=== PATIENT | male | born 1990 | race Caucasian/White ===

== ENCOUNTER 2019-01-27 12:16 | Emergency (ER) | payer OTHER ==
[~2019-01-27] VITALS: Ht 180.3 cm; Wt 112.6 kg
[2019-01-27 13:09] VITALS: Ht 180.3 cm; Wt 112.6 kg
[2019-01-27] MEDS ORDERED: DIPHTH/TET/ACEL PERTUSS (ADULT) 0.5 ML VIAL IM* ONE (14:30)
[2019-01-27] MEDS ORDERED: LIDOCAINE 1% (MDV) 20 ML INJ SC ONE (14:30)
[2019-01-27] MEDS ORDERED: HYDROCODONE/APAP (10/325) TAB PO ONE (14:30)
[2019-01-27] MEDS ORDERED: SOD CHLORIDE 0.9% 100 ML ONE (15:33)
[2019-01-27] MEDS ORDERED: IOHEXOL 300MG/ML 150 ML BTL ONE (15:33)
[2019-01-27] MEDS ORDERED: CEPH-443 PO (16:17)
[2019-01-27] MEDS ORDERED: TRAM50TA2 PO (16:17)
--- NOTE | 2019-01-27 16:27 | ERD ---
ER Documentation Chief Complaint Chief Complaint fell off ladder onto metal spikes earlier today HPI Patient is a 28-year-old male presenting to the ED after falling off of a one- story building. Patient fell and impaled himself on a fence. Patient recalls the whole event and states he did not lose consciousness and did not hit his head. Patient was able to bring himself to the ER with his friend. Patient is alert oriented x4. Patient has 1 laceration on the upper left portion of his back which is approximately 3 cm and appears to be deep, 2 cm superficial laceration on his left lower back 2 cm laceration, 2 cm laceration left lower abdominal region that appears superficial, patient has sub-hemorrhage conjunctivitis in his right eye. Eyes any drug or alcohol use and says he lost his balance when he was sitting on a railing and fell backwards. He is to medication. Patient denies any past medical history. ROS All systems reviewed and are negative except as per history of present illness. Medications Home Meds Active Scripts Tramadol HCl (Tramadol HCl) 50 Mg Tablet, 50 MG PO BID, #20 TAB Prov:FAVIO LEON PA-C 01/27/19 Cephalexin* (Keflex*) 500 Mg Capsule, 500 MG PO QID for 5 Days, CAP Prov:FAVIO LEON PA-C 01/27/19 Allergies Allergies: Coded Allergies: No Known Allergy (Unverified , 05/08/15) PMhx/Soc Medical and Surgical Hx: pt denies Medical Hx, pt denies Surgical Hx Hx Alcohol Use: No Hx Substance Use: No Hx Tobacco Use: No Smoking Status: Never smoker FmHx Family History: No diabetes, No coronary disease, No other Physical Exam Vitals Vital Signs Date Temp Pulse Resp B/P (MAP) Pulse Ox O2 O2 Flow FiO2 Time Delivery Rate 01/27/19 98.2 77 18 138/82 100 Room Air 17:40 (100) 01/27/19 98.2 94 18 146/83 100 13:09 (104) Physical Exam Const: No acute distress Head: Atraumatic Eyes: Right eye has sub-conjunctival hemorrhage, no signs of globe rupture, no signs of foreign body, no signs of eyelid lacerations, ENT: Normal External Ears, Nose and Mouth. Neck: Full range of motion. No meningismus. Resp: Clear to auscultation bilaterally Cardio: Regular rate and rhythm, no murmurs Abd: 2 cm laceration left lower flank ,soft, non tender, non distended. Normal bowel sounds Skin: No petechiae or rashes Back: 3 cm laceration left upper back, 2 cm laceration left lower back, Ext: No cyanosis, or edema Neur: Awake and alert Psych: Normal Mood and Affect Result Diagram: 01/27/19 1429 01/27/19 1429 Results 24 hrs Laboratory Tests Test 01/27/19 14:29 White Blood Count 12.9 10^3/ul Red Blood Count 5.86 10^6/ul Hemoglobin 16.3 g/dl Hematocrit 48.3 % Mean Corpuscular Volume 82.4 fl Mean Corpuscular Hemoglobin 27.8 pg Mean Corpuscular Hemoglobin Concent 33.7 g/dl Red Cell Distribution Width 12.4 % Platelet Count 281 10^3/UL Mean Platelet Volume 10.3 fl Immature Granulocytes % 0.500 % Neutrophils % 82.5 % Lymphocytes % 12.1 % Monocytes % 4.3 % Eosinophils % 0.2 % Basophils % 0.4 % Nucleated Red Blood Cells % 0.0 /100WBC Immature Granulocytes # 0.070 10^3/ul Neutrophils # 10.7 10^3/ul Lymphocytes # 1.6 10^3/ul Monocytes # 0.6 10^3/ul Eosinophils # 0.0 10^3/ul Basophils # 0.1 10^3/ul Nucleated Red Blood Cells # 0.0 10^3/ul Sodium Level 142 mmol/L Potassium Level 4.6 mmol/L Chloride Level 107 mmol/L Carbon Dioxide Level 27 mmol/L Anion Gap 8 Blood Urea Nitrogen 12 mg/dl Creatinine 0.95 mg/dl Est Glomerular Filtrat Rate mL/min > 60 mL/min Glucose Level 109 mg/dl Calcium Level 9.6 mg/dl Total Bilirubin 0.9 mg/dl Direct Bilirubin 0.00 mg/dl Indirect Bilirubin 0.9 mg/dl Aspartate Amino Transf (AST/SGOT) 35 IU/L Alanine Aminotransferase (ALT/SGPT) 44 IU/L Alkaline Phosphatase 67 IU/L Total Protein 8.1 g/dl Albumin 4.5 g/dl Globulin 3.60 g/dl Albumin/Globulin Ratio 1.25 Current Medications Medications Dose Sig/Karina Start Time Status Last (Trade) Ordered Route PRN Stop Time Admin Dose Reason Admin 1 tab ONCE ONCE 01/27/19 DC 01/27/19 Acetaminophen PO 14:30 01/27/19 14:20 / 14:31 Hydrocodone Bitart ([place] (10325)) Diphtheria/ 0.5 ml ONCE ONCE 01/27/19 DC 01/27/19 Tetanus/Acell IM* 14:30 01/27/19 14:21 Pertussis 14:31 (Adacel) Lidocaine 20 ml ONCE ONCE 01/27/19 DC (Xylocaine SC 14:30 01/27/19 1% (Mdv) 20 14:31 ml) IV Flush 10 ml STK-MED 01/27/19 DC (NS 10 ml) ONCE .ROUTE 15:01/27/19 15:34 Sodium 100 ml @ ud STK-MED 01/27/19 DC Chloride ONCE .ROUTE 15:01/27/19 15:34 Iohexol 150 ml STK-MED 01/27/19 DC (Omnipaque ONCE .ROUTE 15:01/27/19 300mg/ ml) 15:34 Procedures/MDM Diagnostic imaging: Read by radiologist PROCEDURE: CT Chest With Intravenous Contrast CLINICAL INDICATION: Fall with penetrating trauma. TECHNIQUE: Axial computed tomography images of the chest with intravenous contrast. Sagittal and coronal reformatted images were created and reviewed. CTDIvol (mGy) = 20.39; total DLP (mGy-cm) = 1682.48. This CT exam was performed using one or more of the following dose reduction techniques: automated exposure control, adjustment of the mA and/or kV according to patient size, and/or use of iterative reconstruction technique. DICOM images are available. CONTRAST: 100 mL of Isovue 300 was administered intravenously. 100 mL of Isovue 300 was administered intravenously. COMPARISON: None FINDINGS: LUNGS: Mild dependent atelectasis in the lungs bilaterally. No consolidative pulmonary infiltrates. PLEURAL SPACE: Unremarkable. No pleural effusion. No pneumothorax. HEART: Unremarkable. No cardiomegaly. No significant pericardial effusion. BONES/JOINTS: No acute fracture demonstrated. No dislocation. SOFT TISSUES: Unremarkable. VASCULATURE: Unremarkable. LYMPH NODES: Unremarkable. No enlarged lymph nodes. UPPER ABDOMEN: Please see accompanying CT abdomen and pelvis report. IMPRESSION: 1. Mild dependent atelectasis in the lungs bilaterally. No consolidative pulmonary infiltrates. 2. No acute fracture demonstrated. 3. No acute abnormality demonstrated. RPTAT: [facility] RPTAT: [facility] PROCEDURE: CT Abdomen and Pelvis With Intravenous Contrast CLINICAL INDICATION: Fall with penetrating trauma. TECHNIQUE: Axial computed tomography images of the abdomen and pelvis with intravenous contrast. Sagittal and coronal reformatted images were created and reviewed. CTDIvol (mGy) = 20.39; total DLP (mGy-cm) = 1682.48. This CT exam was performed using one or more of the following dose reduction techniques: automated exposure control, adjustment of the mA and/or kV according to patient size, and/or use of iterative reconstruction technique. DICOM images are available. CONTRAST: 100 mL of Isovue 300 was administered intravenously. 100 mL of Isovue 300 was administered intravenously. COMPARISON: None FINDINGS: LUNG BASES: Please see accompanying CT chest report from same date. ABDOMEN: LIVER: Unremarkable. No evidence of injury. GALLBLADDER AND BILE DUCTS: Unremarkable. No calcified stones. No ductal dilation. PANCREAS: Unremarkable. No mass. No ductal dilation. SPLEEN: Unremarkable. No splenomegaly. ADRENALS: Unremarkable. No mass. KIDNEYS AND URETERS: Unremarkable. No solid mass. No hydronephrosis. STOMACH AND BOWEL: Unremarkable. No obstruction. No mucosal thickening. PELVIS: APPENDIX: The appendix is normal in appearance. BLADDER: Unremarkable. No mass. REPRODUCTIVE: Unremarkable as visualized. ABDOMEN and PELVIS: INTRAPERITONEAL SPACE: Unremarkable. No free air. No significant fluid collection. BONES/JOINTS: No acute fracture demonstrated. No dislocation. SOFT TISSUES: Air is seen in the subcutaneous fat overlying the anterior aspect of the left iliac crest. This is consistent with penetrating trauma. There is no extension into the peritoneal space. The anterior abdominal wall musculature demonstrates a punctate focus of air between the oblique layers on the left side related to the penetrating injury. There is no muscle tear or intramuscular hematoma demonstrated. VASCULATURE: Unremarkable. LYMPH NODES: Unremarkable. No enlarged lymph nodes. IMPRESSION: 1. Air is seen in the subcutaneous fat overlying the anterior aspect of the left iliac crest. This is consistent with penetrating trauma. There is no extension into the peritoneal space. 2. The anterior abdominal wall musculature demonstrates a punctate focus of air between the oblique layers on the left side related to the penetrating injury. There is no muscle tear or intramuscular hematoma demonstrated. 3. No acute bowel abnormality demonstrated. 4. No pneumoperitoneum or hemoperitoneum. 5. No acute abnormality demonstrated of the solid abdominal organs. 6. No acute fracture demonstrated. RPTAT: [facility] RPTAT: [facility] R-Josué Kunz, Physician [employer] PROCEDURE: CT brain without contrast CLINICAL INDICATION: Fall, head pain TECHNIQUE: CT of the brain without contrast was performed on a multidetector CT scanner, with multiplanar reformats. One or more of the following dose redu ction techniques were used: Automated exposure control, adjustment in mA and / or kV according to patient size, use of iterative reconstructive technique. CTDIvol = 37 mGy; DLP = 714 mGy-cm. DICOM images are available. COMPARISON: None available FINDINGS: No acute intracranial hemorrhage is identified. No extra-axial fluid collection is seen. There is no mass effect. No midline shift is identified. The ventricles and sulci are within normal limits for size and configuration. The density of the brain is unremarkable. Griffin-white junctions are preserved. Calvarium and skull base are intact. Mastoids are grossly clear. See separate face CT report for additional details. IMPRESSION: No evidence of acute intracranial pathology. PROCEDURE: CT cervical spine without contrast. CLINICAL INDICATION: Fall. Neck pain TECHNIQUE: CT of the cervical spine without contrast was performed on a multidetector CT scanner, with multiplanar reformats. One or more of the following dose reduction techniques were used: Automated exposure control, adjustment in mA and / or kV according to patient size, use of iterative reconstructive technique. CTDIvol = 22 mGy and DLP = 588 mGy-cm. DICOM images are available. COMPARISON: None available. FINDINGS: No fracture is identified. There is straightening of the lordosis of the cervical spine. No spondylolisthesis is identified. The vertebral bodies are maintained in height. The craniocervical junction is unremarkable. The disc spaces are maintained in height. No significant disc bulge/herniation, central canal stenosis or foraminal narrowing is identified. IMPRESSION: Straightening of the cervical lordosis, without evidence of fracture. PROCEDURE: CT face without contrast CLINICAL INDICATION: Fall, face pain TECHNIQUE: CT of the face without contrast was performed on a multidetector CT scanner, with multiplanar reformats. One or more of the following dose reduction techniques were used: Automated exposure control, adjustment in mA and / or kV according to patient size, use of iterative reconstructive technique. CTDIvol = 29 mGy and DLP = 564 mGy-cm. DICOM images are available. COMPARISON: None available. FINDINGS: No acute fracture or injury of the orbital structures is identified. There are chronic-appearing / post-traumatic deformity of the left orbital floor, and at t he anterior left knee orbital wall/lamina papyracea with dehiscence of the small amount of orbital fat. Otherwise the orbits appear unremarkable. No soft tissue hematoma, gas or radiopaque foreign body is seen. Mild areas of mucosal thickening are seen in the bilateral maxillary sinuses. The nasal septum is noted be deviated to the right. Mild periapical lucency are seen at the left maxillary central incisor and first molar without destructive osseous change seen. IMPRESSION: 1. No acute facial fracture/orbital injury identified. 2. 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 3. Paranasal sinus and dental disease as described above. Procedures: LACERATION: The patient was verbally consented prior to procedure. Patient was explained the risks, benefits and alternatives to this procedure. Location: Left upper back Length: 3 cm Anesthesia: local 1% lidocaine, 5 cc Inspection: The wound was thoroughly explored and no foreign bodies, deep tissue, tendon or structural injuries were noted. Repair: The area was prepared and draped in the usual sterile manner with the wound exposed. Two 5-0 deep subcutaneous absorbable sutures were placed to adhere the fascia, 3 nonabsorbable 4-0 sutures were placed to adhere the superf icial skin sutures were placed with good wound closure and wound approximation. Bleeding was minimal. The patient tolerated the procedure well with no complications. The wound was dressed with bacitracin and sterile gauze. The patient was neurovascularly intact post-procedure. Post-procedural wound care was discussed with the patient. LACERATION: The patient was verbally consented prior to procedure. Patient was explained the risks, benefits and alternatives to this procedure. Location: Left lower back Length: 2 cm Anesthesia: local 1% lidocaine, 5 cc Inspection: The wound was thoroughly explored and no foreign bodies, deep tissue, tendon or structural injuries were noted. Repair: The area was prepared and draped in the usual sterile manner with the wound exposed. 3 nonabsorbable sutures were placed with good wound closure and wound approximation. Bleeding was minimal. The patient tolerated the procedure well with no complications. The wound was dressed with bacitracin and sterile gauze. The patient was neurovascularly intact post-procedure. Post-procedural wound care was discussed with the patient. LACERATION: The patient was verbally consented prior to procedure. Patient was explained the risks, benefits and alternatives to this procedure. Location: Left flank Length: 2 cm Anesthesia: local 1% lidocaine, 5 cc Inspection: The wound was thoroughly explored and no foreign bodies, deep tissue, tendon or structural injuries were noted. Repair: The area was prepared and draped in the usual sterile manner with the wound exposed. 3 nonabsorbable sutures were placed with good wound closure and wound approximation. Bleeding was minimal. The patient tolerated the procedure well with no complications. The wound was dressed with bacitracin and sterile gauze. The patient was neurovascularly intact post-procedure. Post-procedural wound care was discussed with the patient. The patient was advised that if they develop fever, chills, discharge or discomfort to return to the ER immediately. I discussed with the patient the importance of having a wound check in 2 days and the importance of having the sutures removed within the appropriate time. Medications given in ER: TDAP [place] Patient tolerated medication well with no adverse reactions. Patient reported improvement in pain. Medical decision making: Patient is a 28-year-old male presented to ED after falling off a second story and landing on the fence. Patient has obvious open wounds to his left upper back left lower back and left flank. Patient's right eye has subconjunctival hemorrhage no signs of globe rupture pupils are equal round and reactive to light. Patient is alert oriented x4. Patient was able to recall the full event and states that he did not lose consciousness. Patient denies any past medical history. Patient states he did not pass out but he lost his balance. Patient does not know when his last tetanus shot was. Patient was given updated tetanus in the ED. Patient states that he is in 9 out of 10 pain. Patient was given [place] for pain and on reevaluation patient states the pain has improved. Patient was placed in a soft cervical collar immediately on arrival. Patient's physical exam showed no neurovascular deficits, patients abdomen is soft non tender to palpitation, no signs of ecchymosis, or palatable masses. Patients had no spinal tenderness and no crepitus felt on palpation. The patient had three laceration repairs done within in a sterile field. Patient CT scan was reviewed with Dr. Lerner and showed no internal hemophage, patient CBC showed no sign of anemia. Patient remained stable during his entire visit in the ED. At this time I have low suspicion for internal bleeding, ruptured/laceration of an vital organs, pneumothorax, hemothorax, retroperineal bleed, peritonitis, sepsis, evisceration, sepsis, compartment syndrome, spinal injury,fra cture,dislocation, foreign body retention or neurovascular injury. The patients lacerations were repaired in a sterile field and thoroughly irrigated prior to closure.The patient was advised that if he experiences in worsening symptoms to return to the ED immediately. The patient was advised to follow up with his primary care provider regarding this visit. All questions were answered upon discharge and the patient is in agreement to the treatment plan. Prescription for home: Tramadol Keflex I have discussed with the patient proper use and common side effects to expert with the medication . I advised the patient/family to speak with the pharmacist dispensing the medication to be advised of any potential drug interactions with other medication or supplements they may be taking. Discharge: At this time, patient is stable for discharge and outpatient management. I have instructed the patient to follow-up with his\her primary care physician in 1 to 2 days. I have discussed with the patient the possibility of needing to see a specialist for further work-up and imaging studies if symptoms persist. I have instructed the patient to promptly return to the ER for any new or worsening symptoms including increased pain, fever, nausea, vomiting, weakness or LOC. The patient and\or family expressed understanding of and agreement with this plan. All questions were answered. Home care instructions were provided. Disclaimer: Inadvertent spelling and grammatical errors are likely due to EHR\dictation software use and do not reflect on the overall quality of patient care. Also, please note that the electronic time recorded on the note does not necessarily reflect the actual time of the patient encounter. Departure Diagnosis: Primary Impression: Laceration Condition: Stable Patient Instructions: Laceration, All Referrals: [facility] YOU HAVE RECEIVED A MEDICAL SCREENING EXAM AND THE RESULTS INDICATE THAT YOU DO NOT HAVE A CONDITION THAT REQUIRES URGENT TREATMENT IN THE EMERGENCY DEPARTMENT. FURTHER EVALUATION AND TREATMENT OF YOUR CONDITION CAN WAIT UNTIL YOU ARE SEEN IN YOUR DOCTORS OFFICE WITHIN THE NEXT 1-2 DAYS. IT IS YOUR RESPONSIBILITY TO MAKE AN APPOINTMENT FOR FOLOW-UP CARE. IF YOU HAVE A PRIMARY DOCTOR --you should call your primary doctor and schedule an appointment IF YOU DO NOT HAVE A PRIMARY DOCTOR YOU CAN CALL OUR PHYSICIAN REFERRAL HOTLINE AT IF YOU CAN NOT AFFORD TO SEE A PHYSICIAN YOU CAN CHOSE FROM THE FOLLOWING [facility] [address] [facility]. [facility] [address] [facility]. [facility] [address] [facility] [facility] [address] [facility]. [facility] [address] [facility] [facility] [address] [facility]. [facility] YOU HAVE RECEIVED A MEDICAL SCREENING EXAM AND THE RESULTS INDICATE THAT YOU DO NOT HAVE A CONDITION THAT REQUIRES URGENT TREATMENT IN THE EMERGENCY DEPARTMENT. FURTHER EVALUATION AND TREATMENT OF YOUR CONDITION CAN WAIT UNTIL YOU ARE SEEN IN YOUR DOCTORS OFFICE WITHIN THE NEXT 1-2 DAYS. IT IS YOUR RESPONSIBILITY TO MAKE AN APPOINTMENT FOR FOLOW-UP CARE. IF YOU HAVE A PRIMARY DOCTOR --you should call your primary doctor and schedule and appointment IF YOU DO NOT HAVE A PRIMARY DOCTOR YOU CAN CALL OUR PHYSICIAN REFERRAL HOTLINE AT . IF YOU CAN NOT AFFORD TO SEE A PHYSICIAN YOU CAN CHOSE FROM THE FOLLOWING [facility]: [facility] [address] [place] [address] [facility] [address] [place] [address] [facility] + [facility] [address] [place] [address] Additional Instructions: Follow up with your physician to remove the stitches:For Face wounds 5-7 days.For Elsewhere on the body 7-10 days.Follow up in 2 days in your clinic for wound check.Call your primary care doctor TOMORROW for an appointment during the next 1-2 days.See the doctor sooner or return here if your condition worsens before your appointment time. FAVIO LEON PA-C Jan 27, 2019 16:27
[2019-01-27 17:40] VITALS: BP 138/82; PULSE 77; RESP 18
== END 2019-01-27 17:43 | disposition home or self-care (01) ==
LOC: FTE 12:16
DX: S31.010A Laceration without foreign body of lower back and pelvis without penetration into retroperitoneum, initial encounter (principal); S21.212A Laceration without foreign body of left back wall of thorax without penetration into thoracic cavity, initial encounter; S31.114A Laceration without foreign body of abdominal wall, left lower quadrant without penetration into peritoneal cavity, initial encounter; W17.89XA Other fall from one level to another, initial encounter; Y92.9 Unspecified place or not applicable; Z23 Encounter for immunization
CPT/HCPCS: 12002; 12032; 70450; 70486; 71260; 72125; 74177; 80053; 85025; 90715; Q9967; Z7610; 90471

== ENCOUNTER 2019-02-05 10:59 | Emergency (ER) | payer OTHER ==
[~2019-02-05] VITALS: Wt 95.5 kg
[~2019-02-05 10:59] MED LIST: CEPH-443 PO; TRAM50TA2 PO
[2019-02-05 11:03] VITALS: BP 148/69; PULSE 73; RESP 20; Wt 95.5 kg
--- NOTE | 2019-02-05 12:26 | ERD ---
ER Documentation Chief Complaint Chief Complaint suture removal from back HPI 28-year-old male presenting for suture removal to his back. Patient has had sutures for the last 10 days after he fell on a fence. He states that everything is healing appropriately and he has no longer pain. Denies any fevers. Has not use any medications on the area. Denies medical problems. NKDA. Surgical history denies. Social history denies ROS All systems reviewed and are negative except as per history of present illness. Medications Home Meds Active Scripts Tramadol HCl (Tramadol HCl) 50 Mg Tablet, 50 MG PO BID, #20 TAB Prov:FAVIO LEON PA-C 01/27/19 Cephalexin* (Keflex*) 500 Mg Capsule, 500 MG PO QID for 5 Days, CAP Prov:FAVIO LEON PA-C 01/27/19 Allergies Allergies: Coded Allergies: No Known Allergy (Unverified , 05/08/15) PMhx/Soc Medical and Surgical Hx: pt denies Medical Hx, pt denies Surgical Hx Hx Alcohol Use: No Hx Substance Use: No Hx Tobacco Use: No FmHx Family History: No diabetes, No coronary disease, No other Physical Exam Vitals Vital Signs Date Temp Pulse Resp B/P (MAP) Pulse Ox O2 O2 Flow FiO2 Time Delivery Rate 02/05/19 98.2 73 20 148/69 98 11:03 (95) Physical Exam GENERAL: The patient is well-appearing, well-nourished, in no acute distress CHEST: Clear to auscultation bilaterally. There are no rales, wheezes or rhonchi. HEART: Regular rate and rhythm. No murmurs, clicks, rubs or gallops. EXTREMITIES: Equal pulses bilaterally. There is no peripheral clubbing, cyanosis or edema. No focal swelling or erythema. Full range of motion. Grossly neurovascularly intact. NEUROLOGIC: Alert and oriented. Cranial nerves II through XII intact. Motor strength in all 4 extremities with 5 out of 5 strength. Sensation grossly intact. SKIN: Healed laceration noted to the back with no surrounding erythema or dehiscence of the wound. Sutures intact. Procedures/MDM ER course: Sutures removed without complication. MDM: 28-year-old male presenting for suture removal to the back. I have low suspicion for acute infectious process. I have low suspicion for complication. Patient is discharged with strict ER precautions and told to follow-up with primary care within 1 to 2 days for close evaluation. Patient is discharged with strict your precautions and told to follow-up with primary care within 1 to 2 days for close evaluation. Patient is told symptoms change or worsen to return immediately to the ER. All questions answered at discharge Departure Diagnosis: Primary Impression: Encounter for removal of sutures Condition: Stable Patient Instructions: Suture Removal, No Complication Referrals: [facility] YOU HAVE RECEIVED A MEDICAL SCREENING EXAM AND THE RESULTS INDICATE THAT YOU DO NOT HAVE A CONDITION THAT REQUIRES URGENT TREATMENT IN THE EMERGENCY DEPARTMENT. FURTHER EVALUATION AND TREATMENT OF YOUR CONDITION CAN WAIT UNTIL YOU ARE SEEN IN YOUR DOCTORS OFFICE WITHIN THE NEXT 1-2 DAYS. IT IS YOUR RESPONSIBILITY TO MAKE AN APPOINTMENT FOR FOLOW-UP CARE. IF YOU HAVE A PRIMARY DOCTOR --you should call your primary doctor and schedule an appointment IF YOU DO NOT HAVE A PRIMARY DOCTOR YOU CAN CALL OUR PHYSICIAN REFERRAL HOTLINE AT IF YOU CAN NOT AFFORD TO SEE A PHYSICIAN YOU CAN CHOSE FROM THE FOLLOWING [facility] CL[facility] [id number] [facility] [address] [facility] [facility] [address] [facility] [address] [facility] [address] [facility] [facility]. [address] Additional Instructions: FOLLOW UP WITH YOUR PRIMARY CARE PHYSICIAN TOMORROW.Return to this facility if you are not improving as expected. INO MUHAMMAD PA-C Feb 05, 2019 12:26
== END 2019-02-05 12:43 | disposition home or self-care (01) ==
LOC: FTE 10:59
DX: Z48.01 Encounter for change or removal of surgical wound dressing (principal)
CPT/HCPCS: 99281